=== PATIENT | male | born 1960 | race Caucasian/White ===

== ENCOUNTER 2021-07-19 12:33 | Inpatient (IN) ==
[2021-07-19 13:33] LABS: Basophils % 1.1 % (0.0-0.8); Eosinophils # 0.1 10*3/uL (0.0-0.87); Eosinophils % 3.2 % (0.00-10.9); Hematocrit 24.6 VOL% (42.0-52.0); Hemoglobin 7.1 GM/DL (14.0-18.0); Immature Granulocytes % 0.7 %; Immature Granulocytes Absolute 0.02 #; Lymphocytes # 0.7 10*3/uL (1.4-4.0); Lymphocytes % 22.9 % (21.2-54.2); Mean Corpuscular HGB Conc 28.9 GM/DL (32-36); Mean Corpuscular Volume 78.3 FL (87-102); Monocytes % 9.5 % (1.7-12.7); Neutrophils % 62.6 % (38.7-73.9); Platelet Count 79 T/CUMM (130-400); Red Blood Count 3.14 MC/CUMM (3.8-5.5); Red Cell Distribution Width 17.2 % (9.3-17.3); White Blood Count 2.8 T/CUMM (4-12)
[2021-07-19 13:43] LABS: INR 1.1; PT Patient Result 12.6 SECS (10.5-12.0); Partial Thromboplastin Time 21.9 SECS (23.8-32.1)
[2021-07-19 13:50] LABS: Albumin 2.9 G/DL (3.4-5.0); Bilirubin,Total 0.6 MG/DL (0.20-1.00); Calcium 8.2 MG/DL (8.5-10.1); Osmolality,Calculated 280.4 MOS/KG (273-304); Potassium 4.1 MMOL/L (3.5-5.1); Total Protein 6.4 G/DL (6.4-8.2)
[2021-07-19 14:17] LABS: Thyroid Stimulating Hormone 0.99 uIU/ml (0.358-3.74)
[2021-07-19] MEDS ORDERED: GLUCAGON 1 MG VIAL IM PRN (15:27)
[2021-07-19] MEDS ORDERED: hydrALAZINE 20 MG/1 ML VIAL IV PRN (15:27)
[2021-07-19] MEDS ORDERED: ONDANSETRON 4 MG/2 ML VIAL IV PRN (15:27)
[2021-07-19] MEDS ORDERED: SODIUM CHLORIDE 0.9% 1,000 ML IV PRN (15:29)
[2021-07-19] MEDS ORDERED: FUROSEMIDE 40 MG/4 ML VIAL IV ONE (15:30)
[2021-07-19] MEDS ORDERED: DEXTROSE 10% 250 ML BAG IV PRN (15:31)
[2021-07-19] MEDS ORDERED: MORPHINE 4 MG/1 ML VIAL IV PRN (15:31)
[2021-07-19 16:47] LABS: Hepatitis B Core IgM Quant 0.19 Index; Hepatitis B Surface Ag Quant < 0.10 Index; Hepatitis B Surface Ag Result Non-Reactive (NonReactive); Hepatitis C Virus Ab Quant 0.05 Index; Hepatitis C Virus Ab Result Non-Reactive (NonReactive)
[2021-07-20 05:43] LABS: Eosinophils # 0.1 10*3/uL (0.0-0.87); Eosinophils % 2.9 % (0.00-10.9); Hematocrit 24.8 VOL% (42.0-52.0); Hemoglobin 7.3 GM/DL (14.0-18.0); Immature Granulocytes % 0.3 %; Immature Granulocytes Absolute 0.01 #; Lymphocytes # 0.8 10*3/uL (1.4-4.0); Lymphocytes % 24.6 % (21.2-54.2); Mean Corpuscular HGB Conc 29.4 GM/DL (32-36); Mean Corpuscular Volume 77.5 FL (87-102); Monocytes % 8.3 % (1.7-12.7); Neutrophils % 62.9 % (38.7-73.9); Platelet Count 85 T/CUMM (130-400); Red Cell Distribution Width 16.9 % (9.3-17.3); White Blood Count 3.1 T/CUMM (4-12)
[2021-07-20 05:46] LABS: INR 1.2; PT Patient Result 12.8 SECS (10.5-12.0)
[2021-07-20 05:54] LABS: Albumin 2.5 G/DL (3.4-5.0); Bilirubin,Total 0.8 MG/DL (0.20-1.00); Calcium 8.1 MG/DL (8.5-10.1); Osmolality,Calculated 281.3 MOS/KG (273-304); Total Protein 5.6 G/DL (6.4-8.2)
[2021-07-20 06:05] LABS: Hypochromia 1+; Microcytosis 1+; Platelet Estimate Decreased
[2021-07-20] MEDS: PANTOPRAZOLE 40 MG TABLET PO SCH (09:12)
[2021-07-21 05:44] LABS: Basophils % 1.1 % (0.0-0.8); Eosinophils # 0.1 10*3/uL (0.0-0.87); Eosinophils % 2.6 % (0.00-10.9); Hemoglobin 7.7 GM/DL (14.0-18.0); Immature Granulocytes % 0.4 %; Immature Granulocytes Absolute 0.01 #; Lymphocytes # 0.6 10*3/uL (1.4-4.0); Lymphocytes % 20.6 % (21.2-54.2); Mean Corpuscular HGB Conc 29.6 GM/DL (32-36); Mean Corpuscular Volume 76.2 FL (87-102); Monocytes % 9.2 % (1.7-12.7); Neutrophils % 66.1 % (38.7-73.9); Red Blood Count 3.41 MC/CUMM (3.8-5.5); Red Cell Distribution Width 16.9 % (9.3-17.3); White Blood Count 2.7 T/CUMM (4-12)
[2021-07-21 05:51] LABS: Platelet Count 80 T/CUMM (130-400)
[2021-07-21 06:02] LABS: % Iron Saturation 2.8 % (18-50); Ferritin 4.5 ng/mL (26-388)
[2021-07-21 06:07] LABS: Hypochromia 1+; Microcytosis 1+; Platelet Estimate Decreased
[2021-07-21] MEDS: PANTOPRAZOLE 40 MG TABLET PO SCH (08:06)
[2021-07-21 12:17] VITALS: BP 121/59
[2021-07-23 14:20] LABS: Antinuclear Ab, S 0.2 U
[2021-07-24 12:50] LABS: Smooth Muscle Antibody Negative (Negative)
== END 2021-07-21 12:21 | disposition home or self-care (01) | DRG 433 ==
LOC: N.ED 12:33 → N.EDINP 15:27 → SUATTDRO 15:27 → N.5E 18:04
PROVIDERS: ADMIT Internal Medicine; ATTEND Internal Medicine Geriatric Medicine

== ENCOUNTER 2021-12-04 22:38 | Observation (INO) ==
[2021-12-05 00:26] LABS: Basophils % 0.4 % (0.0-0.8); Eosinophils # 0.1 10*3/uL (0.0-0.87); Eosinophils % 0.9 % (0.00-10.9); Hematocrit 44.7 VOL% (42.0-52.0); Hemoglobin 14.5 GM/DL (14.0-18.0); Immature Granulocytes % 0.6 %; Immature Granulocytes Absolute 0.03 #; Lymphocytes # 0.4 10*3/uL (1.4-4.0); Lymphocytes % 7.8 % (21.2-54.2); Mean Corpuscular HGB Conc 32.4 GM/DL (32-36); Mean Corpuscular Volume 88.2 FL (87-102); Monocytes # 0.5 10*3/uL (0.11-0.8); Monocytes % 8.6 % (1.7-12.7); Neutrophils % 81.7 % (38.7-73.9); Platelet Count 52 T/CUMM (130-400); Red Blood Count 5.07 MC/CUMM (3.8-5.5); Red Cell Distribution Width 18.2 % (9.3-17.3); White Blood Count 5.4 T/CUMM (4-12)
[2021-12-05] MEDS ORDERED: ONDANSETRON 4 MG/2 ML VIAL IV STA (01:06)
[2021-12-05] MEDS ORDERED: HYDROmorphone 1 MG/1 ML SYRINGE IV STA (01:06)
[2021-12-05] MEDS ORDERED: PANTOPRAZOLE 40 MG VIAL IV STA (01:06)
[2021-12-05] MEDS ORDERED: SODIUM CHLORIDE 0.9% 1,000 ML IV STA (01:06)
[2021-12-05 01:19] LABS: INR 1.2; PT Patient Result 12.9 SECS (10.5-12.0); Partial Thromboplastin Time 20.8 SECS (23.7-32.9)
[2021-12-05] MEDS ORDERED: OCTREOTIDE 100 MCG/ML SYRINGE IV STA (01:35)
[2021-12-05] MEDS ORDERED: PANTOPRAZOLE INJ 200 MG in SODIUM CHLORIDE 0.9% 250 ML IV SCH (02:00)
[2021-12-05] MEDS ORDERED: GLUCAGON 1 MG VIAL IM PRN (02:39)
[2021-12-05] MEDS ORDERED: HYDROmorphone 1 MG/1 ML SYRINGE IV PRN (02:39)
[2021-12-05] MEDS ORDERED: DEXTROSE 10% 250 ML BAG IV PRN (02:52)
[2021-12-05] MEDS: ONDANSETRON 4 MG/2 ML VIAL IV PRN ×2 (04:30→08:19)
[2021-12-05] MEDS: OCTREOTIDE 500 MCG in SODIUM CHLORIDE 0.9% 100 ML IV SCH ×2 (04:31→15:10)
[2021-12-05] MEDS: LACTATED RINGERS 1,000 ML IV SCH ×2 (05:01→20:57)
[2021-12-05 05:58] LABS: Basophils % 0.3 % (0.0-0.8); Eosinophils % 0.3 % (0.00-10.9); Hematocrit 45.6 VOL% (42.0-52.0); Hemoglobin 14.1 GM/DL (14.0-18.0); Immature Granulocytes % 0.3 %; Immature Granulocytes Absolute 0.02 #; Lymphocytes # 0.5 10*3/uL (1.4-4.0); Lymphocytes % 8.9 % (21.2-54.2); Mean Corpuscular HGB Conc 30.9 GM/DL (32-36); Monocytes # 0.5 10*3/uL (0.11-0.8); Monocytes % 7.9 % (1.7-12.7); Neutrophils % 82.3 % (38.7-73.9); Platelet Count 55 T/CUMM (130-400); Red Blood Count 5.01 MC/CUMM (3.8-5.5); Red Cell Distribution Width 18.1 % (9.3-17.3)
[2021-12-05 06:11] LABS: Bilirubin,Total 1.7 MG/DL (0.20-1.00); Calcium 8.6 MG/DL (8.5-10.1); Osmolality,Calculated 285.1 MOS/KG (273-304); Total Protein 7.1 G/DL (6.4-8.2)
[2021-12-05 06:21] LABS: Platelet Estimate Decreased
[2021-12-05] MEDS ORDERED: propofoL 200 MG/20 ML VIAL IV ONE (12:50)
[2021-12-05] MEDS ORDERED: LIDOCAINE 2% 5 ML VIAL ONE (12:50)
[2021-12-05] MEDS ORDERED: ONDANSETRON 4 MG/2 ML VIAL ONE (12:50)
[2021-12-05] MEDS: PROPRANOLOL 20 MG TABLET PO SCH ×2 (15:11→20:57)
[2021-12-05] MEDS: PANTOPRAZOLE 40 MG TABLET PO SCH (20:57)
[2021-12-05] MEDS ORDERED: ACETAMINOPHEN 325 MG TABLET PO PRN (21:03)
[2021-12-06] MEDS: OCTREOTIDE 500 MCG in SODIUM CHLORIDE 0.9% 100 ML IV SCH ×2 (00:35→12:17)
[2021-12-06] MEDS: LACTATED RINGERS 1,000 ML IV SCH (07:47)
[2021-12-06] MEDS: PROPRANOLOL 20 MG TABLET PO SCH (08:57)
[2021-12-06] MEDS: PANTOPRAZOLE 40 MG TABLET PO SCH (08:58)
[2021-12-06 08:59] LABS: Basophils % 0.6 % (0.0-0.8); Eosinophils # 0.2 10*3/uL (0.0-0.87); Eosinophils % 2.7 % (0.00-10.9); Hematocrit 44.3 VOL% (42.0-52.0); Immature Granulocytes % 0.3 %; Immature Granulocytes Absolute 0.02 #; Lymphocytes # 0.8 10*3/uL (1.4-4.0); Lymphocytes % 11.8 % (21.2-54.2); Mean Corpuscular HGB Conc 31.6 GM/DL (32-36); Mean Corpuscular Volume 91.3 FL (87-102); Monocytes # 0.5 10*3/uL (0.11-0.8); Monocytes % 7.1 % (1.7-12.7); Neutrophils % 77.5 % (38.7-73.9); Platelet Count 62 T/CUMM (130-400); Red Blood Count 4.85 MC/CUMM (3.8-5.5); Red Cell Distribution Width 17.4 % (9.3-17.3); White Blood Count 6.6 T/CUMM (4-12)
[2021-12-06 09:49] LABS: Albumin 2.7 G/DL (3.4-5.0); Bilirubin,Total 1.9 MG/DL (0.20-1.00); Calcium 8.3 MG/DL (8.5-10.1); Osmolality,Calculated 284.5 MOS/KG (273-304); Potassium 4.4 MMOL/L (3.5-5.1); Total Protein 6.3 G/DL (6.4-8.2)
[2021-12-06 09:57] LABS: Anisocytosis Slight; Macrocytosis Slight; Platelet Estimate Decreased
[2021-12-06 12:41] VITALS: BP 111/67
== END 2021-12-06 14:14 | disposition home or self-care (01) ==
LOC: N.5E 22:38 → N.ED 22:38 → SUATTDRO 12-05 02:39 → N.5E 12-05 03:45
PROVIDERS: ADMIT Family Medicine; ATTEND Family Medicine

== ENCOUNTER 2021-12-23 13:49 | Inpatient (IN) ==
[2021-12-23 17:08] LABS: Arterial Base Excess iSTAT -1 MMOL/L (-2.5-2.5); Arterial Bicarbonate iSTAT 22.6 MMOL/L (20-26); Arterial O2 Saturation iSTAT 94 % (95-100); Arterial PCO2 iSTAT 32 MM HG (35-48); Arterial PO2 iSTAT 68 MM HG (80-95); Arterial Total CO2 iSTAT 24 MMO/L (23-27); Arterial pH iSTAT 7.454 (7.35-7.45)
[2021-12-23 17:21] LABS: Basophils % 0.7 % (0.0-0.8); Eosinophils # 0.1 10*3/uL (0.0-0.87); Eosinophils % 2.3 % (0.00-10.9); Hemoglobin 14.4 GM/DL (14.0-18.0); Immature Granulocytes % 0.9 %; Immature Granulocytes Absolute 0.04 #; Lymphocytes # 0.6 10*3/uL (1.4-4.0); Lymphocytes % 13.8 % (21.2-54.2); Mean Corpuscular Volume 90.2 FL (87-102); Mean Platelet Volume 11.7 FL (9.6-12.0); Monocytes # 0.4 10*3/uL (0.11-0.8); Monocytes % 10.1 % (1.7-12.7); Neutrophils % 72.2 % (38.7-73.9); Red Blood Count 4.99 MC/CUMM (3.8-5.5); Red Cell Distribution Width 18.2 % (9.3-17.3); White Blood Count 4.4 T/CUMM (4-12)
[2021-12-23 17:29] LABS: Urine Appearance Clear (Clear); Urine Color Yellow (Yellow)
[2021-12-23 17:30] LABS: Bilirubin,Urine Negative (Negative); Blood, Urine Trace mg/dL (Negative); Glucose,Urine (UA) Negative (Negative); Ketones,Urine Negative (Negative); Nitrite,Urine Negative (Negative); Protein,Urine Negative (Negative); Urine pH 6.5 (4.5-8.0)
[2021-12-23 17:33] LABS: Bacteria,Urine Occasional /HPF (Few); Mucus,Urine Occasional /LPF (Occasional); RBC,Urine 1 /HPF (0-4)
[2021-12-23 17:34] LABS: Platelet Count 56 T/CUMM (130-400)
[2021-12-23 17:39] LABS: Elliptocytes Few; Hypochromia Slight; Platelet Estimate Decreased
[2021-12-23 17:43] LABS: Barbiturates Screen,Urine Negative (Negative); Benzodiazepines Screen,Urine Negative (Negative); Cannabinoid Screen,Urine Negative (Negative); Opiate Screen,Urine Negative (Negative); Phencyclidine Screen,Urine Negative (Negative)
[2021-12-23 17:43] LABS: INR 1.2; PT Patient Result 13.2 SECS (10.1-12.1)
[2021-12-23 18:11] LABS: Albumin 3.2 G/DL (3.4-5.0); Bilirubin,Total 1.5 MG/DL (0.20-1.00); Calcium 9.9 MG/DL (8.5-10.1); Osmolality,Calculated 286.8 MOS/KG (273-304); Potassium 3.7 MMOL/L (3.5-5.1); Thyroid Stimulating Hormone 0.482 uIU/ml (0.358-3.74); Total Protein 7.4 G/DL (6.4-8.2)
[2021-12-23] MEDS ORDERED: GLUCAGON 1 MG VIAL IM PRN (20:00)
[2021-12-23] MEDS ORDERED: ONDANSETRON 4 MG/2 ML VIAL IV PRN (20:00)
[2021-12-23] MEDS ORDERED: hydrALAZINE 20 MG/1 ML VIAL IV PRN (20:00)
[2021-12-23] MEDS ORDERED: DEXTROSE 10% 250 ML BAG IV PRN (20:07)
[2021-12-23] MEDS: INSULIN REGULAR 100 UNIT/ML SUBCUT SCH (21:58)
[2021-12-23] MEDS: APIXABAN 5 MG TABLET PO SCH (21:59)
[2021-12-23] MEDS: PANTOPRAZOLE 40 MG TABLET PO SCH (21:59)
[2021-12-23] MEDS: LACTULOSE 20 GM/30 ML UDCUP PO SCH (22:01)
[2021-12-24] MEDS: LACTULOSE 20 GM/30 ML UDCUP PO SCH ×5 (01:12→20:47)
[2021-12-24 06:07] LABS: Basophils % 0.9 % (0.0-0.8); Eosinophils # 0.1 10*3/uL (0.0-0.87); Eosinophils % 2.8 % (0.00-10.9); Hematocrit 41.1 VOL% (42.0-52.0); Hemoglobin 13.3 GM/DL (14.0-18.0); Immature Granulocytes % 0.7 %; Immature Granulocytes Absolute 0.03 #; Lymphocytes # 0.7 10*3/uL (1.4-4.0); Lymphocytes % 16.2 % (21.2-54.2); Mean Corpuscular HGB Conc 32.4 GM/DL (32-36); Mean Corpuscular Volume 89.3 FL (87-102); Mean Platelet Volume 13.2 FL (9.6-12.0); Monocytes # 0.4 10*3/uL (0.11-0.8); Neutrophils % 70.4 % (38.7-73.9); Platelet Count 58 T/CUMM (130-400); Red Cell Distribution Width 18.4 % (9.3-17.3); White Blood Count 4.3 T/CUMM (4-12)
[2021-12-24 06:16] LABS: INR 1.3; PT Patient Result 14.1 SECS (10.1-12.1); Partial Thromboplastin Time 33.4 SECS (23.7-32.9)
[2021-12-24 06:27] LABS: Platelet Estimate Decreased
[2021-12-24 06:30] LABS: Albumin 2.8 G/DL (3.4-5.0); Bilirubin,Total 2.6 MG/DL (0.20-1.00); Osmolality,Calculated 289.6 MOS/KG (273-304); Potassium 3.7 MMOL/L (3.5-5.1); Total Protein 6.6 G/DL (6.4-8.2)
[2021-12-24] MEDS: INSULIN REGULAR 100 UNIT/ML SUBCUT SCH ×4 (08:07→20:53)
[2021-12-24] MEDS: PANTOPRAZOLE 40 MG TABLET PO SCH ×2 (08:43→20:46)
[2021-12-24] MEDS: APIXABAN 5 MG TABLET PO SCH ×2 (08:43→20:46)
[2021-12-24] MEDS: RIFAXIMIN 550 MG TABLET PO SCH (20:46)
[2021-12-24] MEDS ORDERED: ACETAMINOPHEN 325 MG TABLET PO ONE (21:33)
[2021-12-25] MEDS: LACTULOSE 20 GM/30 ML UDCUP PO SCH ×6 (03:45→21:14)
[2021-12-25 05:37] LABS: Basophils % 0.8 % (0.0-0.8); Eosinophils # 0.2 10*3/uL (0.0-0.87); Eosinophils % 3.6 % (0.00-10.9); Hematocrit 42.7 VOL% (42.0-52.0); Hemoglobin 13.9 GM/DL (14.0-18.0); Immature Granulocytes % 0.4 %; Immature Granulocytes Absolute 0.02 #; Lymphocytes # 0.9 10*3/uL (1.4-4.0); Mean Corpuscular HGB Conc 32.6 GM/DL (32-36); Mean Corpuscular Volume 89.3 FL (87-102); Mean Platelet Volume 12.3 FL (9.6-12.0); Monocytes # 0.5 10*3/uL (0.11-0.8); Monocytes % 10.1 % (1.7-12.7); Neutrophils % 67.1 % (38.7-73.9); Platelet Count 59 T/CUMM (130-400); Red Blood Count 4.78 MC/CUMM (3.8-5.5); White Blood Count 5.2 T/CUMM (4-12)
[2021-12-25 05:47] LABS: INR 1.3; PT Patient Result 13.9 SECS (10.1-12.1)
[2021-12-25 05:54] LABS: Bilirubin,Total 1.9 MG/DL (0.20-1.00); Calcium 9.7 MG/DL (8.5-10.1); Potassium 3.8 MMOL/L (3.5-5.1); Total Protein 6.5 G/DL (6.4-8.2)
[2021-12-25 05:55] LABS: Platelet Estimate Decreased
[2021-12-25] MEDS: INSULIN REGULAR 100 UNIT/ML SUBCUT SCH ×4 (07:24→21:07)
[2021-12-25] MEDS ORDERED: LACTATED RINGERS 1,000 ML IV SCH (08:00)
[2021-12-25] MEDS ORDERED: INDOMETHACIN SUPP 50 MG SUPP RECTAL ONE (08:00)
[2021-12-25] MEDS: RIFAXIMIN 550 MG TABLET PO SCH ×2 (08:31→21:08)
[2021-12-25] MEDS: PANTOPRAZOLE 40 MG TABLET PO SCH ×2 (08:31→21:08)
[2021-12-25] MEDS: APIXABAN 5 MG TABLET PO SCH ×2 (08:32→21:08)
[2021-12-26] MEDS: LACTULOSE 20 GM/30 ML UDCUP PO SCH ×4 (00:07→12:10)
[2021-12-26 05:21] LABS: Basophils # 0.1 10*3/uL (0.0-0.2); Basophils % 0.9 % (0.0-0.8); Eosinophils # 0.2 10*3/uL (0.0-0.87); Eosinophils % 4.1 % (0.00-10.9); Hematocrit 45.7 VOL% (42.0-52.0); Hemoglobin 14.6 GM/DL (14.0-18.0); Immature Granulocytes % 0.5 %; Immature Granulocytes Absolute 0.03 #; Lymphocytes # 1.2 10*3/uL (1.4-4.0); Lymphocytes % 21.6 % (21.2-54.2); Mean Corpuscular HGB Conc 31.9 GM/DL (32-36); Mean Corpuscular Volume 90.5 FL (87-102); Mean Platelet Volume 12.1 FL (9.6-12.0); Monocytes # 0.5 10*3/uL (0.11-0.8); Monocytes % 9.2 % (1.7-12.7); Neutrophils % 63.7 % (38.7-73.9); Platelet Count 73 T/CUMM (130-400); Red Blood Count 5.05 MC/CUMM (3.8-5.5); Red Cell Distribution Width 18.6 % (9.3-17.3); White Blood Count 5.6 T/CUMM (4-12)
[2021-12-26 05:38] LABS: Bilirubin,Total 1.9 MG/DL (0.20-1.00); Calcium 10.1 MG/DL (8.5-10.1); Osmolality,Calculated 286.8 MOS/KG (273-304); Potassium 4.2 MMOL/L (3.5-5.1); Total Protein 7.2 G/DL (6.4-8.2)
[2021-12-26 05:39] LABS: Platelet Estimate Decreased
[2021-12-26] MEDS: INSULIN REGULAR 100 UNIT/ML SUBCUT SCH ×2 (08:13→11:18)
[2021-12-26 08:18] VITALS: BP 111/62
[2021-12-26] MEDS: APIXABAN 5 MG TABLET PO SCH (09:17)
[2021-12-26] MEDS: PANTOPRAZOLE 40 MG TABLET PO SCH (09:17)
[2021-12-26] MEDS: RIFAXIMIN 550 MG TABLET PO SCH (09:17)
[2021-12-28] MEDS ORDERED: CYANOCOBALAMIN 1000 MCG/1 ML VIAL SUBCUT SCH (09:00)
== END 2021-12-26 15:34 | disposition home or self-care (01) | DRG 441 ==
LOC: N.EDINP 13:49 → N.ED 13:49 → SUATTDRO 20:00 → N.3E 22:17 → SUATTDRO 12-25 07:27
PROVIDERS: ADMIT Internal Medicine; ATTEND Internal Medicine